=== PATIENT | female | born 1970 | race Caucasian/White ===

== ENCOUNTER → 2017-02-17 | Outpatient (CLI) | payer MEDICARE, MEDICAID ==
[~2017-02-17] MED LIST: ESCI20TA10 PO; GADOBUTROL 7.5 MMOL/7.5 ML PFS ONE; LAMO150T3 PO; OMEP20TA9 PO; QUET300T5 PO
== END ==
LOC: RAD 08:51
PROVIDERS: ATTEND Internal Medicine Hematology & Oncology
DX: C43.59 Malignant melanoma of other part of trunk (principal); Q28.3 Other malformations of cerebral vessels
CPT/HCPCS: 70553; A9585

== ENCOUNTER → 2017-03-09 | Outpatient (CLI) | payer MEDICARE, MEDICAID ==
[~2017-03-09] MED LIST changes: -GADOBUTROL 7.5 MMOL/7.5 ML PFS ONE; +OMNIPAQUE 350 MG/ML, 100ML BOTTLE ONE
== END | disposition home or self-care (01) ==
LOC: CFH 13:08
PROVIDERS: ATTEND Internal Medicine Hematology & Oncology
DX: C43.59 Malignant melanoma of other part of trunk (principal); R91.1 Solitary pulmonary nodule; Z90.710 Acquired absence of both cervix and uterus; I70.0 Atherosclerosis of aorta
CPT/HCPCS: 71260; 74177; Q9967

== ENCOUNTER → 2019-04-06 | Outpatient (CLI) | payer MEDICARE, MEDICAID | END | disposition home or self-care (01) | LOC: CFH 10:11 | PROVIDERS: ATTEND Surgery | DX: D18.09 Hemangioma of other sites (principal); C44.509 Unspecified malignant neoplasm of skin of other part of trunk; G44.52 New daily persistent headache (NDPH) | CPT/HCPCS: 70470; Q9967 ==